=== PATIENT | male | born 1985 | race Caucasian/White ===

== ENCOUNTER → 2020-09-13 06:51 | Outpatient (CLI) | payer OTHER, SELFPAY ==
--- NOTE | 2020-09-13 06:58 | CT_ITS ---
STUDY: CT FACIAL BONES WITHOUT CONTRAST REASON FOR EXAM: Male, 35 years old. EXTENDED MANDIBULAR HARDWARE. Prior fracture. RADIATION DOSAGE (If Supplied By Facility): CTDIvol = ( 33.06 ) mGy, DLP = ( 887.57 ) mGycm TECHNIQUE: The patient was scanned in a multi detector CT scanner. Sagittal and coronal images were reconstructed. Individualized dose optimization techniques were used for this CT. COMPARISON: None. FINDINGS: Normal soft tissue structures. There is evidence of prior open reduction and internal fixation of the upper mandible on the right side. The patient is status post open reduction internal fixation of the fractures of the lateral villaseñor of both maxillary sinuses. There is opacification of the right maxillary sinus. There is persistent deformity of the floor of the right orbit. There is nasal septal deviation towards the left side of the midline with a bony spur. No acute fracture is seen. Mucosal thickening of the ethmoid sinuses bilaterally. CT/Sinus/Facial Bone IMPRESSION: Status post ORIF of the bilateral maxillary fractures and right mandibular fracture with opacification of the right maxillary sinus and mucosal thickening of the ethmoid sinuses. Nasal septal deviation towards the left side of the midline. Electronically Signed: Perez Garces MD at 8:59 EDT , Service support ,
== END ==
PROVIDERS: Referring Provider Otolaryngology; Visit Provider Otolaryngology
DX: T85.698A Other mechanical complication of other specified internal prosthetic devices, implants and grafts, initial encounter (principal); J34.2 Deviated nasal septum
CPT/HCPCS: 70486

== ENCOUNTER → 2020-11-29 | Outpatient (CLI) | payer OTHER, SELFPAY ==
[2020-11-29 18:26] LABS: Probe Check PASS
== END | disposition home or self-care (01) ==
LOC: LABSPEC 15:13
PROVIDERS: Visit Provider Otolaryngology
DX: U07.1 COVID-19 (principal)
CPT/HCPCS: 87635; U0005; U0003

== ENCOUNTER → 2021-02-28 | Outpatient (CLI) | payer OTHER, SELFPAY | END | disposition home or self-care (01) | LOC: LABSPEC 15:21 | PROVIDERS: Visit Provider Otolaryngology | DX: Z20.822 Contact with and (suspected) exposure to COVID-19 (principal) | CPT/HCPCS: 87635; U0005; U0003 ==